=== PATIENT | male | born 1995 | race Caucasian/White ===

== ENCOUNTER 2018-10-22 23:31 | Emergency (ER) | payer MEDICAID, OTHER ==
[~2018-10-22] VITALS: Ht 188 cm; Wt 108.9 kg
[~2018-10-22 23:31] MED LIST: ALPR0.25 PO
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
[2018-10-23] MEDS ORDERED: oxyCODONE/APAP 5/325 1 TAB TABLET PO ONE (00:15)
[2018-10-23 00:21] VITALS: BP 144/88
[2018-10-23] MEDS ORDERED: BACITRACIN ZINC TOPICAL OINT PACKET. TP ONE (00:30)
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
== END 2018-10-23 00:39 | disposition home or self-care (01) ==
LOC: ER 23:31
DX: T23.242A Burn of second degree of multiple left fingers (nail), including thumb, initial encounter (principal); J45.909 Unspecified asthma, uncomplicated; X08.8XXA Exposure to other specified smoke, fire and flames, initial encounter; Y93.89 Activity, other specified; Y92.89 Other specified places as the place of occurrence of the external cause; Y99.8 Other external cause status
CPT/HCPCS: 16020; 73130; 99284

== ENCOUNTER 2019-02-17 17:34 | Emergency (ER) | payer MEDICAID, OTHER ==
[~2019-02-17] VITALS: Ht 188 cm; Wt 110.2 kg
[2019-02-17 17:42] VITALS: BP 132/85
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
[2019-02-17] MEDS ORDERED: HYDR-1179 PO (18:12)
[2019-02-17] MEDS ORDERED: HYDROcodon/IBUPROFEN 7.5/200MG 1 TAB TABLET PO ONE (18:15)
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
== END 2019-02-17 18:22 | disposition home or self-care (01) ==
LOC: ER 17:34
DX: S92.421A Displaced fracture of distal phalanx of right great toe, initial encounter for closed fracture (principal); W20.8XXA Other cause of strike by thrown, projected or falling object, initial encounter; Y93.89 Activity, other specified; Y92.89 Other specified places as the place of occurrence of the external cause; Y99.8 Other external cause status
CPT/HCPCS: 73630; 99284

== ENCOUNTER 2019-07-21 07:07 | Emergency (ER) | payer MEDICAID ==
[~2019-07-21] VITALS: Ht 188 cm; Wt 109.0 kg
[~2019-07-21 07:07] MED LIST changes: +HYDR-1179 PO
[2019-07-21] MEDS ORDERED: TRIA10.8 NS (07:47)
[2019-07-21] MEDS ORDERED: FEXO1TAB31 PO (07:47)
[2019-07-21 08:27] VITALS: BP 138/78
--- NOTE | 2019-07-21 09:43 | PHYS DOC ---
Past History Past Medical History: No Pertinent History Past Surgical History: No Surgical History Alcohol Use: None Drug Use: None Adult General Chief Complaint Chief Complaint: DIZZY/LIGHT HEADED HPI HPI Patient is a male presents with nasal congestion, rhinorrhea, watery eyes, sore throat, dizziness x2 days. 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 Denies fever chills, sweats. Reports chest wall burning and back pain. No neck pain stiffness rigidity or rash. No medications or therapies taken prior to ED arrival. Patient denies recent travel or known novel coronavirus exposure. Patient is a non-smoker. [] Review of Systems Review of Systems Review of systems as per HPI. All other review of symptoms are negative. All other systems were reviewed and found to be within normal limits, except as documented in this note. Allergies Allergies Allergies Coded Allergies Type Severity Reaction Last Updated Verified No Known Drug Allergies 04/07/16 No Physical Exam Physical Exam Constitutional: Well developed, well nourished, no acute distress, non-toxic appearance. [] HENT: Normocephalic, atraumatic, bilateral external ears normal, oropharynx moist, nose normal. [] Eyes: PERRLA, EOMI, conjunctiva normal. [] Neck: Normal range of motion, no tenderness, supple, no stridor. [] Cardiovascular:Heart rate regular rhythm.[] Lungs & Thorax: Bilateral breath sounds clear to auscultation [] Abdomen: Bowel sounds normal, soft, no tenderness. [] Skin: Warm, dry, no erythema, no rash. [] Back: No tenderness. [] Extremities: No tenderness, no edema. [] Neurologic: Alert and oriented X 3, normal motor function, normal sensory function, no focal deficits noted. [] Psychologic: Affect normal, judgement normal, mood normal. [] Current Patient Data Vital Signs Vital Signs Date Time Temp Pulse Resp B/P (MAP) Pulse Ox O2 Delivery O2 Flow Rate FiO2 07/21/19 08:27 98.3 95 16 138/78 (98) 97 Room Air EKG EKG [] Radiology/Procedures Radiology/Procedures [] Course & Med Decision Making Course & Med Decision Making Pertinent Labs and Imaging studies reviewed. (See chart for details) [Patient symptoms most consistent with hayfever. However, the diagnosis of coronavirus cannot be excluded based upon symptoms alone. Recommendations are for supportive care, self quarantine and outpatient coronavirus testing. Patient provided courtesy work note. Return precautions reviewed. Patient verbalizes understanding agreement discharge instructions prior to departure.] Leighton Disclaimer Leighton Disclaimer This electronic medical record was generated, in whole or in part, using a voice recognition dictation system. Departure Departure: Impression: Primary Impression: Hay fever Additional Impression: Viral syndrome Disposition: HOME, SELF-CARE Condition: STABLE Patient Instructions: Hay Fever, [id number], Viral Syndrome Additional Instructions: Please contact the [facility] for outpatient coronavirus testing. Stay indoors and self quarantine for 14 days pending lab testing results. Take newly prescribed medications as directed. Return to the ED if new or worsening symptoms. Scripts Fexofenadine/Pseudoephedrine (ALMA-D 24 HOUR TABLET) 1 Each Tab.er.24h 1 TAB PO DAILY for 30 Days, #30 TAB 0 Refills Prov: SARWAT RODRIGUEZ DO 07/21/19 Triamcinolone Acetonide (NASACORT) 10.8 Ml [place] 2 SPR NS QHS for 30 Days, ML 0 Refills Prov: SARWAT RODRIGUEZ DO 07/21/19 Problem Qualifiers SARWAT RODRIGUEZ DO Jul 21, 2019 09:43
== END 2019-07-21 08:15 | disposition home or self-care (01) ==
LOC: ER 07:07
DX: J30.1 Allergic rhinitis due to pollen (principal); B34.9 Viral infection, unspecified
CPT/HCPCS: 99283

== ENCOUNTER 2019-09-01 22:13 | Emergency (ER) | payer MEDICAID ==
[~2019-09-01] VITALS: Ht 188 cm; Wt 106.4 kg
[2019-09-01 22:13] VITALS: BP 140/99
[~2019-09-01 22:13] MED LIST changes: +FEXO1TAB31 PO; +TRIA10.8 NS
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
[2019-09-01] MEDS ORDERED: HYDROcodone/APAP 5/325MG 1 TAB TABLET ONE (23:58)
[2019-09-02] MEDS ORDERED: HYDROcodone/APAP 5/325MG 1 TAB TABLET PO ONE
== END 2019-09-01 23:58 | disposition home or self-care (01) ==
LOC: ER 22:13
DX: S01.81XA Laceration without foreign body of other part of head, initial encounter (principal); S00.93XA Contusion of unspecified part of head, initial encounter; R22.31 Localized swelling, mass and lump, right upper limb; M54.2 Cervicalgia; V43.02XA Car driver injured in collision with other type car in nontraffic accident, initial encounter; Y93.I9 Activity, other involving external motion; Y92.488 Other paved roadways as the place of occurrence of the external cause; Y99.8 Other external cause status
CPT/HCPCS: 12011; 70450; 71046; 72125; 73130; 99285

== ENCOUNTER 2020-01-22 21:11 | Emergency (ER) | payer MEDICAID ==
[~2020-01-22] VITALS: Ht 188 cm; Wt 106.4 kg
--- NOTE | 2020-01-22 21:24 | PHYS DOC ---
Past History Past Medical History: No Pertinent History, Asthma, Bronchitis Past Surgical History: No Surgical History Alcohol Use: Rarely Drug Use: None General Adult HPI: HPI: ".. 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 I think I got Bronchitis.. I get it with season changes.. and usually get really wheezing.. and start coughing.. I usually have start a course of steroids.. breathing treatments.. and sometimes antibiotics.. 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 Does have history of seasonal asthma exacerbations or bronchitis. Does have seasonal allergies. The patient no specific ill contacts, But is exposed to patients at the [facility]. Patient undergoes periodic COVID testing at [facility], prior tests have been negative. Does have scheduled test this coming week. The patient patient normally follows at the [facility] clinic. No recent travel outside the [place] area. Patient denies any history immunosuppression. No history of hospital admissions for his asthma exacerbations. Patient requests that he be treated clinically and not get chest x-ray and labs. Review of Systems: Review of Systems: Constitutional: Subjective history of fever Eyes: Denies change in visual acuity HENT: History of nasal congestion Hx. of sore throat. Respiratory: History of a nonproductive cough and wheezing Cardiovascular: Denies chest pain or edema GI: Denies abdominal pain, nausea, vomiting, bloody stools or diarrhea : Denies dysuria Musculoskeletal: Denies back pain or joint pain Integument: Denies rash Neurologic: Complains of headache, after coughing spasms. Patient denies focal weakness or sensory changes Endocrine: Denies polyuria or polydipsia Lymphatic: Denies swollen glands Psychiatric: Denies depression or anxiety Heart Score: Risk Factors: Risk Factors: DM, Current or recent (<one month) smoker, HTN, HLP, family histo ry of CAD, obesity. Risk Scores: Score 0 - 3: 2.5% MACE over next 6 weeks - Discharge Home Score 4 - 6: 20.3% MACE over next 6 weeks - Admit for Clinical Observation Score 7 - 10: 72.7% MACE over next 6 weeks - Early Invasive Strategies Family History: Family History: Noncontributory Current Medications: Current Meds: See nursing for home meds Allergies: Allergies: Allergies Coded Allergies Type Severity Reaction Last Updated Verified No Known Drug Allergies 04/07/16 No Physical Exam: PE: Constitutional: Well developed, well nourished, no acute distress, non-toxic appearance. [] HENT: Normocephalic, atraumatic, bilateral external ears normal, oropharynx moist, mild erythema of throat with postnasal drainage, no oral exudates, nose swollen turbinates and clear rhinorrhea Eyes: PERRLA, EOMI, conjunctiva normal, no discharge. [] Neck: Normal range of motion, no tenderness, supple, no stridor. [] Cardiovascular:Heart rate regular rhythm, no murmur [] Lungs & Thorax: Bilateral breath sounds equal at apex with scattered wheezing on auscultation [] Abdomen: Bowel sounds normal, soft, no tenderness, no masses, no pulsatile masses. [] Skin: Warm, dry, no erythema, no rash. [] Back: No tenderness, no CVA tenderness. [] Extremities: No tenderness, no cyanosis, no clubbing, ROM intact, no edema. [No cording appreciated Neurologic: Alert and oriented X 3, normal motor function, normal sensory function, no focal deficits noted. [] Psychologic: Affect normal, judgement normal, mood normal. [] Current Patient Data: Labs: Refuses labs EKG: EKG: Refuses EKG [] Radiology/Procedures: Radiology/Procedures: Refuses chest x-ray [] Course & Med Decision Making: Course & Med Decision Making Pertinent Labs and Imaging studies reviewed. (See chart for details) Patient take Zithromax 500 mg then 250 a day for 5 days. Patient use MDI 2 puffs 4 times a day.. Patient to self isolate if any documented fever or concerns of bacterial or viral infection. Must wear a mask at all times covering his nose and mouth. Keep follow-up COVID testing as scheduled this week. Patient return if any concerns. Impression: 1. Seasonal Allergies 2. Asthma Exacerbation 3. Bronchitis 4. Pharyngitis [] Dragon Disclaimer: Leighton Disclaimer: This electronic medical record was generated, in whole or in part, using a voice recognition dictation system. Departure Departure: Disposition: 01 HOME/RESIDENCE PRIOR TO ADM Condition: STABLE Referrals: PCP,NO (PCP) Scripts Azithromycin (ZITHROMAX) 250 Mg Tablet 250 MG PO DAILY for ANTI-BIOTIC for 5 Days, #5 TAB 0 Refills Prov: FERMÍN AVILA MD 01/22/20 Leighton Disclaimer This chart was dictated in whole or in part using Voice Recognition software in a busy, high-work load, and often noisy Emergency Department environment. It may contain unintended and wholly unrecognized errors or omissions. FERMÍN AVILA MD Jan 22, 2020 21:24
[2020-01-22] MEDS ORDERED: AZIT250T PO (22:14)
[2020-01-22] MEDS ORDERED: ALBUTEROL SULFATE 8GM INHALER. INH ONE (22:15)
[2020-01-22 22:30] VITALS: BP 132/67
[2020-01-22] MEDS ORDERED: methylPREDNISolone ACETATE 40 MG/ML VIAL. IM ONE (22:30)
[2020-01-22] MEDS ORDERED: AZITHROMYCIN 250 MG TABLET. PO ONE (22:30)
[2020-01-22] MEDS ORDERED: cefTRIAXone IM 1 GM VIAL IM ONE (22:30)
== END 2020-01-22 23:02 | disposition home or self-care (01) ==
LOC: ER 21:11
DX: J45.901 Unspecified asthma with (acute) exacerbation (principal); J02.9 Acute pharyngitis, unspecified
CPT/HCPCS: 94640; 96372; 99284; J0456; J0696; J1030; J7613; 94664

== ENCOUNTER 2020-07-05 14:25 | Emergency (ER) | payer MEDICAID ==
[~2020-07-05] VITALS: Ht 188 cm; Wt 106.4 kg
[2020-07-05 14:25] VITALS: BP 127/62
[~2020-07-05 14:25] MED LIST changes: +AZIT250T PO
[2020-07-05] MEDS ORDERED: IBUPROFEN 800 MG TABLET. PO STA (14:51)
[2020-07-05] MEDS ORDERED: IBUPROFEN 800 MG TABLET. PO ONE (14:52)
[2020-07-05] MEDS ORDERED: AMOXICILLIN 250 MG CAPSULE PO ONE (15:00)
[2020-07-05] MEDS ORDERED: IBUP800T19 PO (15:04)
[2020-07-05] MEDS ORDERED: AMOX500T PO (15:04)
--- NOTE | 2020-07-05 15:04 | PHYS DOC ---
Past History Past Medical History: No Pertinent History, Asthma, Bronchitis Past Surgical History: No Surgical History Alcohol Use: Rarely Drug Use: None General Adult EDM: Chief Complaint: EARACHE/EAR PAIN HPI: HPI: Patient is a 24-year-old male coming in for right ear pain since waking up this morning. Denies any drainage has been raised to his jaw. Denies any fevers. Denies any significant history of ear infections. States he otherwise has been well. Review of Systems: Review of Systems: All other systems within normal limits except for as noted in the HPI Current Medications: Current Meds: Current Medications Medications (Trade) Dose Ordered Sig/Jelena Start Time Stop Time Status Last Admin Dose Admin Amoxicillin (Amoxil) 1,000 mg 1X ONCE 07/05/20 15:00 07/05/20 15:01 UNV Ibuprofen (Motrin) 800 mg 1X STAT 07/05/20 14:51 07/05/20 14:52 UNV Allergies: Allergies: Allergies Coded Allergies Type Severity Reaction Last Updated Verified No Known Drug Allergies 01/22/20 No Physical Exam: PE: Constitutional: Well developed, well nourished, no acute distress, non-toxic appearance. [] HENT: Normocephalic, atraumatic, bilateral external ears normal, cerumen impaction in right ear canal. Nose normal. [] Eyes: PERRLA, conjunctiva normal, no discharge. [] Neck: No rigidity, supple, no stridor. [] Cardiovascular: Regular rate and rhythm, brisk cap refill [] Lungs & Thorax: Non labored symmetric respirations, no tachypnea or respiratory distress [] Abdomen: Soft, nondistended. Skin: Warm, dry, no erythema, no rash. [] Back: Unremarkable Extremities: No deformities, range of motion grossly intact, no lower extremity edema [] Neurologic: Alert and oriented X 3, no focal deficits noted. [] Psychologic: Affect normal, judgement normal, mood normal. [] Current Patient Data: Vital Signs: Vital Signs Date Time Temp Pulse Resp B/P (MAP) Pulse Ox O2 Delivery O2 Flow Rate FiO2 07/05/20 14:25 98.1 76 18 127/62 (83) 98 Room Air EKG: EKG: [] Radiology/Procedures: Radiology/Procedures: [] Heart Score: C/O Chest Pain: N/A Risk Factors: Risk Factors: DM, Current or recent (<one month) smoker, HTN, HLP, family history of CAD, obesity. Risk Scores: Score 0 - 3: 2.5% MACE over next 6 weeks - Discharge Home Score 4 - 6: 20.3% MACE over next 6 weeks - Admit for Clinical Observation Score 7 - 10: 72.7% MACE over next 6 weeks - Early Invasive Strategies Course & Med Decision Making: Course & Med Decision Making Cerumen removed by nurse, right TM erythematous. Will treat with amoxicillin to also cover for dental caries. Dragon Disclaimer: Dragon Disclaimer: This electronic medical record was generated, in whole or in part, using a voice recognition dictation system. Departure Departure: Impression: Primary Impression: Right otitis media Disposition: 01 DC HOME SELF CARE/HOMELESS Condition: STABLE Referrals: PCP,MARISOL (PCP) Patient Instructions: Middle Ear Infection (Otitis Media)-SportsMed Additional Instructions: [facility] for primary care follow-up Address: [address] [place] [address] Scripts Amoxicillin (AMOXICILLIN) 500 Mg Tablet 2 TAB PO TID for antibiotic for 10 Days, #60 TAB Prov: SANCHEZ LAGUERRE MD 07/05/20 Ibuprofen (IBUPROFEN) 800 Mg Tablet 1 TAB PO TID PRN for PAIN, #30 TAB Prov: SANCHEZ LAGUERRE MD 07/05/20 SANCHEZ LAGUERRE MD Jul 05, 2020 15:04
== END 2020-07-05 15:05 | disposition home or self-care (01) ==
LOC: ER 14:25
DX: H66.91 Otitis media, unspecified, right ear (principal); H61.21 Impacted cerumen, right ear; J45.909 Unspecified asthma, uncomplicated
CPT/HCPCS: 69209; 99283